=== PATIENT | female | born 1965 | race Caucasian/White ===

== ENCOUNTER 2022-05-02 11:15 | Emergency (ER) | payer OTHER ==
[~2022-05-02] VITALS: Ht 162.6 cm; Wt 80.0 kg
[~2022-05-02 11:15] MED LIST: LISI-186 PO; METF-414 PO; OMEP20CA14 PO; SIMV-43 PO
[2022-05-02] MEDS ORDERED: ONDANSETRON HCL 4MG/2ML INJ IV STA (11:20)
[2022-05-02] MEDS ORDERED: MORPHINE SULFATE 4 MG/ML CPJ (NOT FOR IM USE) IV STA (11:20)
[2022-05-02] MEDS ORDERED: SODIUM CHLORIDE 0.9% 1,000 ML IV ONE (11:30)
[2022-05-02 11:58] LABS: BASOPHILS % 0.6 % (0.0-2.0); EOSINOPHILS % 0.5 % (0.0-5.0); HEMATOCRIT. 33.6 % (36.0-48.0); HEMOGLOBIN. 10.9 g/dL (12.0-16.0); MEAN CORPUSCULAR HEMOGLOBIN 26.6 pg (28.0-32.0); MEAN CORPUSCULAR VOLUME 82.1 fL (81.0-99.0); MEAN PLATELET VOLUME 8.3 fl (7.4-10.4); MONOCYTES % 5.3 % (2.0-8.0); NEUTROPHILS % 78.6 % (40.0-76.0); PLATELET 332 x1000/uL (130-400); RED BLOOD CELL COUNT 4.09 mill/uL (4.2-5.4); RED CELL DISTRIBUTION WIDTH 16.1 % (11.6-14.6)
[2022-05-02 12:39] LABS: CHLORIDE 101 mEq/L (98-107)
[2022-05-02] MEDS ORDERED: SENN-257 MT (15:18)
[2022-05-02] MEDS ORDERED: DOCU-138 MT (15:18)
[2022-05-02] MEDS ORDERED: MAGN296S70 MT (15:18)
[2022-05-02] MEDS ORDERED: POLYETHYLENE GLYCOL 3350 (17GM) 1 DOSE PACK PO ONE (15:30)
[2022-05-02 16:38] VITALS: BP 146/67
== END 2022-05-02 16:40 | disposition home or self-care (01) ==
LOC: ER 11:15
DX: E11.65 Type 2 diabetes mellitus with hyperglycemia (principal); K59.00 Constipation, unspecified; I10 Essential (primary) hypertension; E78.00 Pure hypercholesterolemia, unspecified; Z79.899 Other long term (current) drug therapy
CPT/HCPCS: 36415; 74176; 80053; 83690; 85025; 96361; 96374; 96375; 99284; J2270; J2405; J7030; Z7610; 99285